=== PATIENT | female | born 1950 | race Caucasian/White ===

== ENCOUNTER 2016-10-10 22:02 | Outpatient (CLI) | payer MEDICARE, BC | END 2016-10-10 22:03 | disposition EMS.NT | LOC: EMS 22:02 | PROVIDERS: ATTEND Surgery | DX: S01.111A Laceration without foreign body of right eyelid and periocular area, initial encounter (principal); R41.0 Disorientation, unspecified; R47.81 Slurred speech; W19.XXXA Unspecified fall, initial encounter; Y92.000 Kitchen of unspecified non-institutional (private) residence as the place of occurrence of the external cause ==

== ENCOUNTER 2016-10-10 22:50 | Emergency (ER) | payer MEDICARE, BC ==
--- NOTE | 2016-10-10 23:32 | ED Physician Documentation ---
PD HPI HEAD INJURY - Stated complaint Stated Complaint: GLF FACE LAC - Chief complaint Chief Complaint: Laceration - History obtained from History obtained from: Patient - History of Present Illness Mechanism of head injury: Fell Where head injury occurred: Home (she and had been to wine tasting dinner and patient says she was some unsteady walking. She tripped and fell, striking face on edge of furniture. heard the fall from upstairs and was with her within 15-20 seconds and she was awake and able to interact. No vomiting, normal vision, no noted injuries elsewhere.) Timing - onset: How many hours ago (1), Today Location of injury: Right (lateral eyebrow on right.) Quality of pain: Aching Associated symptoms: Other (no vision change). No: LOC, AMS, Nausea / vomiting Symptoms worsen with: Palpation Contributing factors: Intoxicated. No: Anticoagulated Similar symptoms before: Has not had sx before Recently seen: Not recently seen Review of Systems Eyes: denies: Loss of vision, Decreased vision, Photophobia Neurologic: denies: Focal weakness, Numbness, Altered mental status, Headache, Head injury PD PAST MEDICAL HISTORY - Past Medical History Cardiovascular: None Respiratory: None Neuro: None - Present Medications Home Medications: Ambulatory Orders Medication Instructions Recorded Confirmed Atorvastatin [Lipitor] 10 mg PO DAILY 10/10/16 10/10/16 Levothyroxine Sodium [Synthroid] 100 mg PO DAILY 10/10/16 10/10/16 Lisinopril 10 mg PO DAILY 10/10/16 10/10/16 - Allergies Allergies/Adverse Reactions: Allergies Allergy/AdvReac Type Severity Reaction Status Date / Time No Known Drug Allergies Allergy Verified 10/10/16 22:57 - Social History Does the pt smoke?: No Smoking Status: Never smoker Does the pt drink ETOH?: Yes ETOH Use: Wine - Immunizations Immunizations are current?: Yes PD ED PE NORMAL - Vitals Vital signs reviewed: Yes - General General: Alert and oriented X 3, No acute distress, Well developed/nourished - HEENT HEENT: PERRL, EOMI, Dentition benign, Other (right lateral eyebrow with 2.5 cm laceration with crisp edges. No FB and no bleeding at this time. ) - Neck Neck: Supple, no meningeal sign, No bony TTP, No adenopathy - Neuro Neuro: Alert and oriented X 3, wound nurse 2-12 intact, No motor deficit, No sensory deficit, Normal speech, Other - Psych Psych: Normal mood, Normal affect Results - Vitals Vitals: Vital Signs - 24 hr 10/10/16 10/11/16 22:55 00:35 Temperature 36.2 C L Heart Rate 73 78 Respiratory 18 18 Rate Blood Pressure 113/73 106/72 O2 Saturation 94 97 Oxygen O2 Source Room air - Rads (name of study) head CT Radiology: Prelim report reviewed (no ICH) Procedures - Laceration (location) right lateral eyebrow Length in cm: 2.5 Wound type: Linear Neurovascular status: Sensory intact, Motor intact Anesthesia: Lidocaine 1% with epi Wound Preparation: Other (cleansed with tap water) Deep layer closure: Vicryl, size #-0 - enter number (6), # sutures - enter number (1) Skin layer closure: Nylon, Running, Size #-0 - enter number (6), Sutures - enter # (10) Other: Patient tolerated well, No complications, Neurovascular intact, Tetanus UTD Complexity: Simple PD MEDICAL DECISION MAKING - ED course Complexity details: reviewed results, considered differential, d/w patient Departure - Departure Disposition: 01 Home, Self Care Clinical Impression: Eyebrow laceration Qualifiers: Encounter type: initial encounter Laterality: right Qualified Code(s): S01.111A - Laceration without foreign body of right eyelid and periocular area, initial encounter Accidental fall Qualifiers: Encounter type: initial encounter Qualified Code(s): W19.XXXA - Unspecified fall, initial encounter Condition: Stable Record reviewed to determine appropriate education?: Yes Instructions: ED Laceration Facial Sutr Tape Comments: It is okay to wash and shower. Clean off the wound twice a day with soap and water, or peroxide and water. Apply some antibiotic ointment to it to keep it moist. Also to watch for signs of infection such as purulence, redness or increasing pain. Return to your primary care or the ER at the specified time for suture removal. Tylenol or Ibuprofen as needed for pains. Suture removal in 7 days. Be sure to protect the wound from the sun for 3-4 weeks to reduce pigmenting as it heals. Discharge Date/Time: 10/11/16 00:35
[2016-10-10] MEDS ORDERED: LIDOCAINE 1%-EPI 1:100000 20 ML MDV SUBQ STA (23:47)
[2016-10-11] MEDS ORDERED: LIDOCAINE MPF 1%-EPI 1:200000 30 ML VIAL ONE
--- NOTE | 2016-10-11 00:17 | CT Preliminary Report ---
Exam: CT Head W/O IMPRESSION: No acute intracranial process identified. Incidental midline lipoma. [facility] SITE ID: [id number]
--- NOTE | 2016-10-11 00:20 | CT Report ---
EXAM: CT HEAD EXAM DATE: 10/11/2016 12:07 AM. CLINICAL HISTORY: Fell and struck forehead. COMPARISON: None. TECHNIQUE: Multiaxial CT images were obtained from the foramen magnum to the vertex. IV contrast: Non e. Reformats: Coronal. In accordance with CT protocol optimization, one or more of the following dose reduction techniques w ere utilized for this exam: automated exposure control, adjustment of mA and/or KV based on patient s ize, or use of iterative reconstructive technique. FINDINGS: Parenchyma: No intraparenchymal hemorrhage. No evidence of mass, midline shift, or CT findings of inf arction. Cline-white differentiation is distinct. Extraaxial Spaces: Normal for age. No subdural or epidural collections identified. Ventricles: Normal in size and position. Sinuses: Imaged paranasal sinuses, orbits, and mastoids show no significant abnormality. Bones: No evidence of fracture or calvarial defect. Other: Small amounts of fat density are seen at the midline about the corpus callosum and within the mid bodies of both lateral ventricles consistent with lipoma. IMPRESSION: No acute intracranial process identified. Incidental midline lipoma. [facility] Referring Provider Line: [phone] SITE ID: [id number]
[2016-10-11 00:35] VITALS: BP 106/72
== END 2016-10-11 00:35 | disposition home or self-care (01) ==
LOC: ED 22:50
DX: S01.111A Laceration without foreign body of right eyelid and periocular area, initial encounter (principal); W01.190A Fall on same level from slipping, tripping and stumbling with subsequent striking against furniture, initial encounter; Y93.01 Activity, walking, marching and hiking
CPT/HCPCS: 12011; 70450; 99283

== ENCOUNTER 2021-03-18 08:00 | Outpatient (CLI) | payer MEDICARE, BC ==
[2021-03-18 14:28] LABS: BILIRUBIN,URINE NEGATIVE (NEGATIVE); GLUCOSE, URINE (UA) NEGATIVE (NEGATIVE); KETONES,URINE (UA) NEGATIVE (NEGATIVE); LEUKOCYTE ESTERASE, URINE NEGATIVE (NEGATIVE); NITRITE,URINE NEGATIVE (NEGATIVE); OCCULT BLOOD,URINE NEGATIVE (NEGATIVE); PROTEIN,URINE NEGATIVE (NEGATIVE); UROBILINOGEN,URINE 0.2 (NORMAL) E.U./dL (NORMAL)
[2021-03-18 14:39] LABS: CLARITY,URINE CLEAR (CLEAR)
[2021-03-18 14:40] LABS: BACTERIA,URINE None Seen /HPF (None Seen); EPITHELIAL CELLS,UR FEW Renal Tubular /HPF (<= Few); RBC,URINE None Seen /HPF (0-5); SQUAMOUS EPITHELIAL CELL,UR FEW Squamous (<= Few); WBC,URINE 0-3 /HPF (0-5)
== END 2021-03-18 23:59 | disposition home or self-care (01) ==
LOC: LAB.S 08:00
PROVIDERS: ATTEND Emergency Medicine
DX: M54.59 Other low back pain (principal)
CPT/HCPCS: 81001; 87086

== ENCOUNTER 2023-06-11 08:00 | Outpatient (CLI) | payer MEDICARE, BC ==
--- NOTE | 2023-06-11 12:15 | XRAY Report ---
PROCEDURE: Chest 2V INDICATIONS: COUGH/CHEST CONGESTION TECHNIQUE: 2 views of the chest were acquired. COMPARISON: None. FINDINGS: Surgical changes and devices: None. Lungs and pleura: No pleural effusions or pneumothorax. Lungs are clear. Mediastinum: Mediastinal contours appear normal. Heart size is normal. Bones and chest wall: No suspicious bony lesions. Overlying soft tissues appear unremarkable. IMPRESSION: No acute cardiopulmonary process. Reviewed by: Gerson Sams MD on 06/11/2023 12:13 PM PST Approved by: Gerson Sams MD on 06/11/2023 12:13 PM PST Station ID: [id number]
== END 2023-06-11 23:59 | disposition home or self-care (01) ==
LOC: DI.S 08:00
PROVIDERS: ATTEND Physician Assistant Medical
DX: R05.9 Cough, unspecified (principal); R09.89 Other specified symptoms and signs involving the circulatory and respiratory systems